=== PATIENT | female | born 1960 | race Caucasian/White ===

== ENCOUNTER 2021-10-29 22:31 | Observation (INO) | payer OTHER ==
--- NOTE | 2021-10-29 22:43 | ERPHSYRPT ---
- History of Present Illness Time Seen by Provider: 10/29/21 22:43 Source: patient, family Exam Limitations: no limitations Physician History: This is a 61-year-old white female has history of hypothyroidism and does not take any other medications and presents with sudden onset of cardiac palpitations. She does not have significant chest pain. She denies shortness of breath. She has had no fevers. She has had this issue in the distant past. Her recollection, it only lasted approximately 10 minutes and went away. She does not see a diagnostic cardiac sonographer. She has no documented coronary artery disease. She denies cough. She denies abdominal pain. She is had no nausea vomiting or diarrhea. She has had no urinary symptoms. Timing/Duration: today Activities at Onset: none Quality: other (No chest pain) Chest Pain Radiation: no radiation Severity of Pain-Max: none Severity of Pain-Current: none Modifying Factors: Improves With: nothing Nitro Today/Relief: no nitro taken today Aspirin Treatment Today: no aspirin today Associated Symptoms: other (Patient's) Prior Chest Pain/Cardiac Workup: no prior chest pain, no prior cardiac workup Allergies/Adverse Reactions: erythromycin base [From Erythrocin] Allergy (Verified 10/29/21 22:51) naproxen [From Aleve] Allergy (Verified 10/29/21 22:52) Travel Risk - International Travel Have you traveled outside of the country in past 3 weeks: No - Coronavirus Screening Are you exhibiting any of the following symptoms?: No Close contact with a COVID-19 positive Pt in past 14-21 Days: No - Review of Systems Constitutional: No Symptoms Eyes: No Symptoms Ears, Nose, & Throat: No Symptoms Respiratory: No Symptoms Cardiac: Palpitations Abdominal/Gastrointestinal: No Symptoms Genitourinary Symptoms: No Symptoms Musculoskeletal: No Symptoms Skin: No Symptoms Neurological: No Symptoms Psychological: No Symptoms Endocrine: No Symptoms Hematologic/Lymphatic: No Symptoms Immunological/Allergic: No Symptoms All Other Systems: Reviewed and Negative - Past Medical History Pertinent Past Medical History: Yes - Past Surgical History Past Surgical History: Yes - Nursing Vital Signs Nursing Vital Signs: Initial Vital Signs Temperature 97.9 F 10/29/21 22:34 Respiratory Rate 18 10/29/21 22:34 Blood Pressure 155/107 10/29/21 22:34 O2 Sat by Pulse Oximetry 98 10/29/21 22:34 Pain Scale Pain Intensity 0 - Physical Exam General Appearance: no apparent distress, alert, anxiety Eye Exam: PERRL/EOMI, eyes nml inspection Ears, Nose, Throat Exam: normal ENT inspection, moist mucous membranes Neck Exam: normal inspection, non-tender, supple, full range of motion Respiratory Exam: normal breath sounds, lungs clear, airway intact, No chest tenderness, No respiratory distress Cardiovascular Exam: tachycardia, irregular Gastrointestinal/Abdomen Exam: soft, normal bowel sounds, No tenderness Pelvic Exam: not done Rectal Exam: not done Back Exam: normal inspection, normal range of motion, No CVA tenderness, No vertebral tenderness Extremity Exam: normal inspection, normal range of motion, pelvis stable Neurologic Exam: alert, oriented x 3, cooperative, 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 No comparison EKG available.) Ordered Tests: Active Orders 24 hr Category Date Time Status Engineering Technical Specialist STAT Care 10/29/21 22:48 Active EKG-ER Only STAT Care 10/29/21 22:48 Active IV Insertion STAT Care 10/29/21 22:48 Active Pulse Oximetry (ED) STAT Care 10/29/21 22:48 Active CHEST 1 VIEW (PORTABLE) Stat Exams 10/29/21 22:48 Taken CBC W DIFF Stat Lab 10/29/21 22:40 Completed CMP Stat Lab 10/29/21 22:40 Completed D-DIMER QUANTITATIVE Stat Lab 10/29/21 22:40 Completed MAGNESIUM Stat Lab 10/29/21 22:40 Completed NT PRO BNP Stat Lab 10/29/21 22:40 Completed T4 (Thyroxine) Stat Lab 10/29/21 22:40 Completed TROPONIN Q3H Lab 10/29/21 22:40 Completed TROPONIN Q3H Lab 10/30/21 02:00 Ordered TROPONIN Q3H Lab 10/30/21 05:00 Ordered TROPONIN Q3H Lab 10/30/21 08:00 Ordered TROPONIN Q3H Lab 10/30/21 11:00 Ordered TSH [TSH, 3RD Generation] Stat Lab 10/29/21 22:40 Completed UA W/RFX CULTURE Stat Lab 10/29/21 23:30 Completed Medication Summary Discontinued Medications Generic Name Dose Route Start Last Admin Trade Name Elyse PRN Reason Stop Dose Admin Diltiazem HCl 20 mg 10/29/21 22:48 10/29/21 22:57 Diltiazem Hcl Iv 5 Mg/Ml Vial IV 10/29/21 22:49 20 mg STAT ONE Administration Diltiazem HCl Confirm 10/29/21 22:53 Diltiazem Hcl Iv 5 Mg/Ml Vial Administered 10/29/21 22:54 Dose 50 mg IV .STEkinops-MED ONE Lab/Rad Data: Laboratory Result Diagrams 10/29/21 22:40 10/29/21 22:40 Laboratory Results 10/29/21 10/29/21 10/29/21 Range/Units 23:30 23:30 22:40 WBC (4.0-10.5) x10^3/uL RBC (4.1-5.4) x10^6/uL Hgb (12.0-16.0) g/dL Hct (35-47) % MCV (78-100) fL MCH (26-32) pg MCHC (32-36) g/dL RDW (11.5-14.0) % Plt Count (150-450) x10^3/uL MPV (7.5-11.0) fL Gran % (36.0-66.0) % Immature Gran % (Auto) (0.00-0.4) % Nucleat RBC Rel Count (0.00-0.1) % Eos # (Auto) (0-0.5) x10^3/uL Immature Gran # (Auto) (0.00-0.03) x10^3u/L Absolute Lymphs (auto) (1.0-4.6) x10^3/uL Absolute Monos (auto) (0.0-1.3) x10^3/uL Absolute Nucleated RBC (0.00-0.01) x10^3u/L Lymphocytes % (24.0-44.0) % Monocytes % (0.0-12.0) % Eosinophils % (0.00-5.0) % Basophils % (0.0-0.4) % Absolute Granulocytes (1.4-6.9) x10^3/uL Basophils # (0-0.4) x10^3/uL D-Dimer (0.0-0.50) mg/L Sodium (137-145) mmol/L Potassium (3.5-5.1) mmol/L Chloride (98-107) mmol/L Carbon Dioxide (22-30) mmol/L Anion Gap (5-15) MEQ/L BUN (7-17) mg/dL Creatinine (0.52-1.04) mg/dL Estimated GFR ML/MIN Glucose (74-106) mg/dL Calcium (8.4-10.2) mg/dL Magnesium (1.6-2.3) mg/dL Total Bilirubin (0.2-1.3) mg/dL AST (14-36) U/L ALT (0-35) U/L Alkaline Phosphatase (38-126) U/L Troponin I (0.000-0.034) ng/mL NT-Pro-B Natriuret Pep (0-900) pg/mL Serum Total Protein (6.3-8.2) g/dL Albumin (3.5-5.0) g/dL Thyroxine (T4) 8.84 (5.53-10.96) ug/dL TSH 3rd Generation (0.47-4.68) mIU/L Urinalys Dipstick Clnc MAIN LAB Urine Color LT.YELLOW (YELLOW) Urine Appearance CLEAR (CLEAR) Urine pH 6.0 (5-6) Ur Specific Lafferty 1.010 (1.005-1.025) POC Urine Protein Conf NEGATIVE (Negative) Urine Ketones NEGATIVE (NEGATIVE) Urine Nitrite NEGATIVE (NEGATIVE) Urine Bilirubin NEGATIVE (NEGATIVE) Urine Urobilinogen 0.2 (0-1) mg/dL Urine Leukocytes NEGATIVE (NEGATIVE) Urine WBC (Auto) NONE (0-5) /HPF Urine RBC (Auto) NONE (0-2) /HPF U Epithel Cells (Auto) NONE (FEW) /HPF Urine Bacteria (Auto) NONE (NEGATIVE) /HPF Urine RBC NEGATIVE (0-5) Yogi/ul Ur Culture Indicated? NO Urine Glucose NEGATIVE (NEGATIVE) mg/dL Influenza Type A Ag NEGATIVE (NEGATIVE) Influenza Type B Ag NEGATIVE (NEGATIVE) RSV (PCR) NEGATIVE (Negative) SARS-CoV-2 (PCR) NEGATIVE (NEGATIVE) 10/29/21 10/29/21 10/29/21 Range/Units 22:40 22:40 22:40 WBC (4.0-10.5) x10^3/uL RBC (4.1-5.4) x10^6/uL Hgb (12.0-16.0) g/dL Hct (35-47) % MCV (78-100) fL MCH (26-32) pg MCHC (32-36) g/dL RDW (11.5-14.0) % Plt Count (150-450) x10^3/uL MPV (7.5-11.0) fL Gran % (36.0-66.0) % Immature Gran % (Auto) (0.00-0.4) % Nucleat RBC Rel Count (0.00-0.1) % Eos # (Auto) (0-0.5) x10^3/uL Immature Gran # (Auto) (0.00-0.03) x10^3u/L Absolute Lymphs (auto) (1.0-4.6) x10^3/uL Absolute Monos (auto) (0.0-1.3) x10^3/uL Absolute Nucleated RBC (0.00-0.01) x10^3u/L Lymphocytes % (24.0-44.0) % Monocytes % (0.0-12.0) % Eosinophils % (0.00-5.0) % Basophils % (0.0-0.4) % Absolute Granulocytes (1.4-6.9) x10^3/uL Basophils # (0-0.4) x10^3/uL D-Dimer 0.32 (0.0-0.50) mg/L Sodium (137-145) mmol/L Potassium (3.5-5.1) mmol/L Chloride (98-107) mmol/L Carbon Dioxide (22-30) mmol/L Anion Gap (5-15) MEQ/L BUN (7-17) mg/dL Creatinine (0.52-1.04) mg/dL Estimated GFR ML/MIN Glucose (74-106) mg/dL Calcium (8.4-10.2) mg/dL Magnesium (1.6-2.3) mg/dL Total Bilirubin (0.2-1.3) mg/dL AST (14-36) U/L ALT (0-35) U/L Alkaline Phosphatase (38-126) U/L Troponin I < 0.012 (0.000-0.034) ng/mL NT-Pro-B Natriuret Pep (0-900) pg/mL Serum Total Protein (6.3-8.2) g/dL Albumin (3.5-5.0) g/dL Thyroxine (T4) (5.53-10.96) ug/dL TSH 3rd Generation 5.860 H (0.47-4.68) mIU/L Urinalys Dipstick Clnc Urine Color (YELLOW) Urine Appearance (CLEAR) Urine pH (5-6) Ur Specific Lafferty (1.005-1.025) POC Urine Protein Conf (Negative) Urine Ketones (NEGATIVE) Urine Nitrite (NEGATIVE) Urine Bilirubin (NEGATIVE) Urine Urobilinogen (0-1) mg/dL Urine Leukocytes (NEGATIVE) Urine WBC (Auto) (0-5) /HPF Urine RBC (Auto) (0-2) /HPF U Epithel Cells (Auto) (FEW) /HPF Urine Bacteria (Auto) (NEGATIVE) /HPF Urine RBC (0-5) Yogi/ul Ur Culture Indicated? Urine Glucose (NEGATIVE) mg/dL Influenza Type A Ag (NEGATIVE) Influenza Type B Ag (NEGATIVE) RSV (PCR) (Negative) SARS-CoV-2 (PCR) (NEGATIVE) 10/29/21 10/29/21 Range/Units 22:40 22:40 WBC 6.5 (4.0-10.5) x10^3/uL RBC 4.86 (4.1-5.4) x10^6/uL Hgb 14.1 (12.0-16.0) g/dL Hct 43.8 (35-47) % MCV 90.1 (78-100) fL MCH 29.0 (26-32) pg MCHC 32.2 (32-36) g/dL RDW 12.4 (11.5-14.0) % Plt Count 260 (150-450) x10^3/uL MPV 9.0 (7.5-11.0) fL Gran % 56.1 (36.0-66.0) % Immature Gran % (Auto) 0.3 (0.00-0.4) % Nucleat RBC Rel Count 0.0 (0.00-0.1) % Eos # (Auto) 0.08 (0-0.5) x10^3/uL Immature Gran # (Auto) 0.02 (0.00-0.03) x10^3u/L Absolute Lymphs (auto) 2.19 (1.0-4.6) x10^3/uL Absolute Monos (auto) 0.52 (0.0-1.3) x10^3/uL Absolute Nucleated RBC 0.00 (0.00-0.01) x10^3u/L Lymphocytes % 33.6 (24.0-44.0) % Monocytes % 8.0 (0.0-12.0) % Eosinophils % 1.2 (0.00-5.0) % Basophils % 0.8 (0.0-0.4) % Absolute Granulocytes 3.66 (1.4-6.9) x10^3/uL Basophils # 0.05 (0-0.4) x10^3/uL D-Dimer (0.0-0.50) mg/L Sodium 139 (137-145) mmol/L Potassium 3.4 L (3.5-5.1) mmol/L Chloride 102 (98-107) mmol/L Carbon Dioxide 29 (22-30) mmol/L Anion Gap 10.6 (5-15) MEQ/L BUN 21 H (7-17) mg/dL Creatinine 1.02 (0.52-1.04) mg/dL Estimated GFR 58.2 ML/MIN Glucose 104 (74-106) mg/dL Calcium 9.3 (8.4-10.2) mg/dL Magnesium 2.2 (1.6-2.3) mg/dL Total Bilirubin 0.60 (0.2-1.3) mg/dL AST 34 (14-36) U/L ALT 21 (0-35) U/L Alkaline Phosphatase 88 (38-126) U/L Troponin I (0.000-0.034) ng/mL NT-Pro-B Natriuret Pep 47.6 (0-900) pg/mL Serum Total Protein 7.1 (6.3-8.2) g/dL Albumin 4.3 (3.5-5.0) g/dL Thyroxine (T4) (5.53-10.96) ug/dL TSH 3rd Generation (0.47-4.68) mIU/L Urinalys Dipstick Clnc Urine Color (YELLOW) Urine Appearance (CLEAR) Urine pH (5-6) Ur Specific Lafferty (1.005-1.025) POC Urine Protein Conf (Negative) Urine Ketones (NEGATIVE) Urine Nitrite (NEGATIVE) Urine Bilirubin (NEGATIVE) Urine Urobilinogen (0-1) mg/dL Urine Leukocytes (NEGATIVE) Urine WBC (Auto) (0-5) /HPF Urine RBC (Auto) (0-2) /HPF U Epithel Cells (Auto) (FEW) /HPF Urine Bacteria (Auto) (NEGATIVE) /HPF Urine RBC (0-5) Yogi/ul Ur Culture Indicated? Urine Glucose (NEGATIVE) mg/dL Influenza Type A Ag (NEGATIVE) Influenza Type B Ag (NEGATIVE) RSV (PCR) (Negative) SARS-CoV-2 (PCR) (NEGATIVE) - Progress Progress: improved, re-examined Air Movement: good Progress Note: 10/29/21 23:10 No acute cardiopulmonary processes on chest x-ray Second EKG performed on 10/29/2021 at 2307 after patient received Cardizem 20 mg IV bolus. The patient still is in atrial fibrillation but it is now rate cont rolled with a heart rate of 89 bpm. There is no acute ischemic changes on this EKG 10/30/21 00:34 Medical decision making: This patient has new onset atrial fibrillation with RVR. She is now converted into normal sinus rhythm. I spoke with Dr. Lyle Shaw and we will place the patient in observation on the intensive care unit with intravenous Cardizem running. Blood Culture(s) Obtained: No Antibiotics given: No Discussed with : Jenni Counseled pt/family regarding: lab results, diagnosis, rad results - Departure Departure Disposition: Observation Clinical Impression: Atrial fibrillation with RVR Condition: Stable Critical Care Time: Yes Critical Care Time(excluding separately billable procedures): Critical 30-74 mins (40 minutes)
[2021-10-29] MEDS ORDERED: Cardizem IV 50 MG/10 ML IV ONE ×2 (22:48→22:53)
[2021-10-29 23:01] LABS: Absolute Neutrophil Ct (ANC) 3.66 x10^3/uL (1.4-6.9); Basophil (Absolute #) 0.05 x10^3/uL (0-0.4); Eosinophil % 1.2 % (0.00-5.0); Eosinophil (Absolute #) 0.08 x10^3/uL (0-0.5); Hematocrit 43.8 % (35-47); Hemoglobin 14.1 g/dL (12.0-16.0); Lymphocyte (Absolute #) 2.19 x10^3/uL (1.0-4.6); Lymphocytes % 33.6 % (24.0-44.0); Mean Cell Volume 90.1 fL (78-100); Mean Corpuscular Hgb Concent. 32.2 g/dL (32-36); Monocyte (Absolute #) 0.52 x10^3/uL (0.0-1.3); Neutrophil % 56.1 % (36.0-66.0); Platelet Count 260 x10^3/uL (150-450); Red Blood Count 4.86 x10^6/uL (4.1-5.4); Red Cell Distribution Width 12.4 % (11.5-14.0); White Blood Count 6.5 x10^3/uL (4.0-10.5)
[2021-10-29 23:12] LABS: ALBUMIN 4.3 g/dL (3.5-5.0); ANION GAP 10.6 MEQ/L (5-15); BILIRUBIN,TOTAL 0.6 mg/dL (0.2-1.3); Calcium 9.3 mg/dL (8.4-10.2); Creatinine 1 1.02 mg/dL (0.52-1.04); EST GLOMERULAR FILTRATION RATE 58.2 ML/MIN; MAGNESIUM 2.2 mg/dL (1.6-2.3); NT PRO BNP 47.6 pg/mL (0-900); Potassium 3.4 mmol/L (3.5-5.1); Total Protein 7.1 g/dL (6.3-8.2)
[2021-10-29 23:37] LABS: Appearance CLEAR (CLEAR); Bilirubin NEGATIVE (NEGATIVE); Dipstick done @ ? MAIN LAB; Glucose NEGATIVE (NEGATIVE); Ketones NEGATIVE (NEGATIVE); Nitrite NEGATIVE (NEGATIVE); Protein,Urine Dip NEGATIVE (Negative); RBC NEGATIVE Ery/ul (0-5); Urobilinogen 0.2 mg/dL (0-1)
[2021-10-29 23:41] LABS: Urine Cultured Indicated? NO
[2021-10-30 00:10] LABS: INFLUENZA A NEGATIVE (NEGATIVE); INFLUENZA B NEGATIVE (NEGATIVE); RESPIRATORY SYNCTIAL VIRUS NEGATIVE (Negative); SARS-CoV-2 Xpert Express NEGATIVE (NEGATIVE)
[2021-10-30] MEDS ORDERED: TYLENOL 325 MG PO PRN (01:15)
[2021-10-30] MEDS ORDERED: CARDIZEM DRIP 100 MG/100 ML D5W 100 ML IV PRN (01:15)
[2021-10-30] MEDS ORDERED: Zofran 4 MG/2 ML VIAL IV PRN (01:15)
[2021-10-30 06:39] LABS: Absolute Neutrophil Ct (ANC) 3.54 x10^3/uL (1.4-6.9); Basophil (Absolute #) 0.02 x10^3/uL (0-0.4); Eosinophil % 0.8 % (0.00-5.0); Eosinophil (Absolute #) 0.04 x10^3/uL (0-0.5); Hemoglobin 13.6 g/dL (12.0-16.0); Lymphocyte (Absolute #) 1.29 x10^3/uL (1.0-4.6); Lymphocytes % 24.6 % (24.0-44.0); Mean Cell Volume 88.4 fL (78-100); Mean Corpuscular Hemoglobin 28.6 pg (26-32); Mean Corpuscular Hgb Concent. 32.4 g/dL (32-36); Monocyte (Absolute #) 0.35 x10^3/uL (0.0-1.3); Monocytes % 6.7 % (0.0-12.0); Neutrophil % 67.3 % (36.0-66.0); Platelet Count 247 x10^3/uL (150-450); Red Blood Count 4.75 x10^6/uL (4.1-5.4); Red Cell Distribution Width 12.6 % (11.5-14.0); White Blood Count 5.3 x10^3/uL (4.0-10.5)
[2021-10-30 06:49] LABS: ALBUMIN 3.9 g/dL (3.5-5.0); ALKALINE PHOSPHATASE 67 U/L (38-126); ANION GAP 7.2 MEQ/L (5-15); BLOOD UREA NITROGEN 18 mg/dL (7-17); CHLORIDE 105 mmol/L (98-107); Calcium 9.1 mg/dL (8.4-10.2); Carbon Dioxide 32 mmol/L (22-30); Creatinine 1 0.81 mg/dL (0.52-1.04); EST GLOMERULAR FILTRATION RATE > 60.0 ML/MIN; Glucose 93 mg/dL (74-106); NT PRO BNP 81.8 pg/mL (0-900); Potassium 4.5 mmol/L (3.5-5.1); SGOT/AST 32 U/L (14-36); SGPT/ALT 20 U/L (0-35); SODIUM 141 mmol/L (137-145); Total Protein 6.7 g/dL (6.3-8.2)
--- NOTE | 2021-10-30 06:53 | XRAY ---
Indication: Palpitation. Arrhythmia. Comparison: None Portable chest hyperinflated and clear with a few incidental tiny calcified granulomas. Heart and mediastinal structures within normal limits. Bony thorax intact with mild degenerative changes. Impression: Nonacute hyperinflated chest with chronic features.
[2021-10-30 07:22] VITALS: BP 136/71; PULSE 71; O2SAT 98
--- NOTE | 2021-11-01 13:04 | SSS ---
DISCHARGE DIAGNOSES: 1) Atrial fibrillation with rapid ventricular response. 2) Hypothyroidism. HISTORY: The patient is a 61-year-old white female who reports that she was in bed when she felt a sudden increase in her heart rate that was quite rapid. She had no other symptoms. The patient reports she had been under a lot of stress recently with her sister's cancer and her daughter having an accident on the road earlier that day on the road to [place]. She reports that she did not feel particularly worried but had no other increased stress. PAST MEDICAL/SURGICAL HISTORY: The patient's clinical history is otherwise significant for her hypothyroidism mentioned above. She has no other significant medical problems. HOME MEDICATIONS: Melatonin she takes at night for sleep, methimazole 10 mg for hypothyroidism. ALLERGIES: ERYTHROMYCIN. NAPROXEN. PHYSICAL EXAMINATION: Vital signs in emergency room revealed temperature 97.9F, respiratory rate 18 and blood pressure 155/107. O2 saturation 98% on room air. HEENT: Normocephalic, atraumatic. Pupils equal round reactive to light. Extraocular movements intact. Oropharynx is pink and moist. NECK: Supple without lymphadenopathy, thyromegaly or JVD. CHEST: Clear to auscultation. HEART: The heart currently is regular rate and rhythm. Irregular around mid to high 60's. ABDOMEN: Soft. No palpable masses. EXTREMITIES: Without cyanosis, clubbing or edema. NEUROLOGIC: The patient is alert and oriented x3. No focal deficits were noted. LAB DATA AND TESTS: Laboratory studies were significant for the atrial fibrillation with rapid ventricular response which did convert after IV Cardizem in the emergency room. She remained in sinus rhythm since that time on no Cardizem drip. The patient did show a normal T4. Her TSH was somewhat high. She did have troponin less than 0.012. The metabolic panel was essentially normal with regards to her electrolytes and liver enzymes. Her ProBNP was normal. Her CBC was normal. She had a second troponin which was negative. She had a chest x-ray which was normal. HOSPITAL COURSE: The patient was admitted to the ICU overnight with observation on telemetry. She has remained in sinus rhythm for the last several hours. The patient has requested to go home presently. She was instructed to follow up with her primary care provider in [place] who works with Dr. Boyd. The patient was instructed to take aspirin 81 mg a day. She was given a prescription for Cardizem 30 mg every 8 hours to take at home. She was instructed to come back to the emergency room if she has problems that are not resolved with her Cardizem or any other new problems that should occur.
== END 2021-10-30 08:49 | disposition home or self-care (01) ==
LOC: ED 22:31 → ICU 10-30 01:09 → MERGE 10-30 01:09
PROVIDERS: ADMIT Family Medicine; ATTEND Family Medicine
DX: I48.20 Chronic atrial fibrillation, unspecified (principal); E03.9 Hypothyroidism, unspecified; Z79.899 Other long term (current) drug therapy; Z20.828 Contact with and (suspected) exposure to other viral communicable diseases; Z80.9 Family history of malignant neoplasm, unspecified
CPT/HCPCS: 0241U; 36000; 36415; 71045; 80053; 81015; 83735; 83880; 84436; 84443; 84484; 85025; 85379; 93005; 93041; 93268; 94760; 96374; 99285; 99291; G0378